=== PATIENT | male | born 1940 | race Caucasian/White ===

== ENCOUNTER 2016-11-27 21:47 | Observation (INO) | payer OTHER ==
[~2016-11-27] VITALS: Ht 175.3 cm; Wt 110.8 kg
[~2016-11-27 21:47] MED LIST: BACTRIM,SEPT1 TABLET PO
[2016-11-27 22:39] LABS: HEMATOCRIT 49.7 % (38.0-50.0); MCH 29.3 PG (29.0-34.0); MCHC 34.6 G/DL (30.0-36.0); MCV 84.7 FL (86-99); MEAN PLAT.VOLUME 11.2 uM^3 (9.0-12.4); PLATELET COUNT 194 K/uL (156-360); RBC DIS.WIDTH-CV 13.7 % (11.8-14.6); RBC DIS.WIDTH-SD 41.6 % (39-53); RED BLOOD COUNT 5.87 M/uL (4.00-5.50); WHITE BLOOD COUNT 19.2 K/uL (4.1-10.2)
[2016-11-27 22:45] LABS: CHLORIDE 105 mEq/L (99-109); POTASSIUM 4.3 mEq/L (3.7-5.4); SODIUM 141 mEq/L (136-147)
[2016-11-27 22:47] LABS: GLUCOSE 223 mg/dL (70-99)
[2016-11-27 22:48] LABS: ANION GAP 10 MEQ/L (2-14)
[2016-11-27 22:50] LABS: GFR ESTIMATE (CALCULATED) 57 mL/min/
[2016-11-27 22:51] LABS: UREA NITROGEN (BUN) 29 mg/dL (9-23)
[2016-11-28] MEDS ORDERED: ALLEGRA ALLERG180 MG PO (01:44)
[2016-11-28] MEDS ORDERED: PRAVASTATIN SOD20 MG PO (01:44)
[2016-11-28] MEDS ORDERED: BENAZEPRIL HCL40 MG PO (01:44)
[2016-11-28] MEDS ORDERED: ATENOLOL100 MG PO (01:44)
[2016-11-28] MEDS ORDERED: LASIX40 MG PO (01:44)
[2016-11-28] MEDS ORDERED: AMLODIPINE BESYL5 MG PO (01:44)
[2016-11-28] MEDS ORDERED: FLONASE16 G1 BOTH NARES (01:45)
[2016-11-28] MEDS ORDERED: OSTEO BI-FLEX1 EAC1 PO (01:45)
[2016-11-28] MEDS ORDERED: LO-DOSE ASPIRIN81 M2 PO (01:45)
[2016-11-28] MEDS ORDERED: CENTRUM MEN'S1 EACH PO (01:45)
[2016-11-28 02:01] LABS: EOSINOPHIL (%) 0.6 % (0-5); EOSINOPHIL COUNT 0.1 K/uL (0-0.3); IMMATURE GRANULOCYTE (%) 0.3 % (0.0-0.7); IMMATURE GRANULOCYTE COUNT 0.1 K/uL; LYMPHOCYTE COUNT 1.2 K/uL (1.0-2.8); MONOCYTE (%) 5.7 % (3-12); NEUTROPHIL (%) 86.7 % (45-76); NEUTROPHIL COUNT 15.8 K/uL (1.8-6.4)
[2016-11-28 02:23] LABS: TROP-I INTERPRETATION NEGATIVE; TROPONIN-I < 0.01 ng/mL (0.0-0.30)
[2016-11-28 03:10] LABS: BILIRUBIN NEGATIVE; BLOOD NEGATIVE; COLOR YELLOW ((YELLOW)); GLUCOSE (STRIP) NEGATIVE; KETONES NEGATIVE; LEUKOCYTES NEGATIVE; NITRITE NEGATIVE; PROTEIN (STRIP) TRACE; UROBILINOGEN 0.2 MG/DL (0.2-1.0)
[2016-11-28 03:11] LABS: ADD MIUA? NO; UCUL ADDED? NO
[2016-11-28 04:14] VITALS: BP 127/60
[2016-11-28 06:45] LABS: ALKALINE PHOSPHATASE 58 IU/L (3-129); ANION GAP 7 MEQ/L (2-14); CHLORIDE 107 MEQ/L (99-109); GFR ESTIMATE (CALCULATED) > 59 mL/min/; POTASSIUM 3.5 MEQ/L (3.7-5.4); SAMPLE HEMOLYSIS CHECK 0; SAMPLE ICTERIC CHECK 0; SAMPLE LIPEMIA CHECK 0; SODIUM 138 MEQ/L (136-147); TOTAL BILIRUBIN 0.5 MG/DL (0.0-1.0); UREA NITROGEN (BUN) 22 mg/dL (9-23)
[2016-11-28 06:47] LABS: GLUCOSE 98 mg/dL (70-99)
[2016-11-28 06:50] LABS: EOSINOPHIL (%) 1.2 % (0-5); EOSINOPHIL COUNT 0.1 K/uL (0-0.3); HEMATOCRIT 43.8 % (38.0-50.0); IMMATURE GRANULOCYTE (%) 0.3 % (0.0-0.7); LYMPHOCYTE COUNT 1.2 K/uL (1.0-2.8); MCH 29.2 PG (29.0-34.0); MCHC 33.6 G/DL (30.0-36.0); MCV 87.1 FL (86-99); MONOCYTE (%) 7.1 % (3-12); MONOCYTE COUNT 0.9 K/uL (0-0.8); NEUTROPHIL (%) 81.2 % (45-76); NEUTROPHIL COUNT 9.7 K/uL (1.8-6.4); PLATELET COUNT 149 K/uL (156-360); RBC DIS.WIDTH-CV 13.8 % (11.8-14.6); RBC DIS.WIDTH-SD 43.2 % (39-53); RED BLOOD COUNT 5.03 M/uL (4.00-5.50)
[2016-11-28 07:59] VITALS: BP 143/72
[2016-11-28] MEDS ORDERED: METRONIDAZOLE500 MG PO (11:42)
[2016-11-28] MEDS ORDERED: LEVOFLOXACIN500 MG PO (11:42)
[2016-11-28 11:51] VITALS: BP 125/72
[2016-11-28 12:10] LABS: POINT-OF-CARE METER ID UU13113831
== END 2016-11-28 16:15 | disposition home or self-care (01) ==
LOC: EME → EDBD 21:47 → EME 21:47 → EDOF 11-28 02:51 → 5WEST 11-28 04:06
PROVIDERS: Emergency Medicine; Internal Medicine; Physician Assistant Medical
DX: K52.9 Noninfective gastroenteritis and colitis, unspecified (principal); K76.89 Other specified diseases of liver; R55 Syncope and collapse; E86.0 Dehydration; N17.9 Acute kidney failure, unspecified; D72.829 Elevated white blood cell count, unspecified; R73.9 Hyperglycemia, unspecified; I10 Essential (primary) hypertension; E78.5 Hyperlipidemia, unspecified; M19.90 Unspecified osteoarthritis, unspecified site; G62.9 Polyneuropathy, unspecified; E66.9 Obesity, unspecified; Z68.34 Body mass index [BMI] 34.0-34.9, adult; Z79.82 Long term (current) use of aspirin; Z87.891 Personal history of nicotine dependence; Z88.1 Allergy status to other antibiotic agents; Z88.7 Allergy status to serum and vaccine
CPT/HCPCS: 71020; 74000; 74176; 80048; 80053; 81003; 82948; 83605; 83630; 84484; 85025; 85027; 87040; 87425; 87493; 87506; 93005; 99281; 99285; G0378; J1815; J7030

== ENCOUNTER → 2018-01-30 | Outpatient (CLI) | payer MEDICARE, OTHER ==
[~2018-01-30] MED LIST changes: +ALLEGRA ALLERG180 MG PO; +AMLODIPINE BESYL5 MG PO; +ATENOLOL100 MG PO; +BENAZEPRIL HCL40 MG PO; +CENTRUM MEN'S1 EACH PO; +FLONASE16 G1 BOTH NARES; +LASIX40 MG PO; +LEVOFLOXACIN500 MG PO; +LO-DOSE ASPIRIN81 M2 PO; +METRONIDAZOLE500 MG PO; +OSTEO BI-FLEX1 EAC1 PO; +PRAVASTATIN SOD20 MG PO
== END | disposition home or self-care (01) ==
LOC: CDC 09:47
DX: Z01.810 Encounter for preprocedural cardiovascular examination (principal); D49.4 Neoplasm of unspecified behavior of bladder
CPT/HCPCS: 93000